=== PATIENT | female | born 1955 | race Caucasian/White ===

== ENCOUNTER 2018-05-30 11:22 | Emergency (ER) | payer MEDICARE, OTHER ==
[~2018-05-30] VITALS: Ht 167.6 cm; Wt 61.2 kg
[2018-05-30 11:38] VITALS: BP 126/66
--- NOTE | 2018-05-30 11:47 | NUR ---
Kenyetta marshall in [facility] - 05/30/18 at [email or web address] PALOMARES AT BEDSIDE
--- NOTE | 2018-05-30 12:01 | NUR ---
AFTER EKG REVIEWD BY , PT OKAY TO WAIT IN ER LOBBY FOR AVAILABLE ROOM
--- NOTE | 2018-05-30 13:40 | NUR ---
PT TAKEN TO BED 11 BY WHEELCHAIR.
[2018-05-30 13:46] LABS: BASOPHILS % (AUTO) 0.4 % (0.0-2.0); EOSINOPHILS % (AUTO) 0.1 % (0.0-4.0); HEMATOCRIT 45.2 % (36-48); HEMOGLOBIN 15.2 g/dL (12.0-16.0); LYMPHOCYTES # (AUTO) 1.4 K/uL (2.5-16.5); LYMPHOCYTES % (AUTO) 15.6 % (20.5-51.1); MEAN CORPUSCULAR HEMOGLOBIN 29 pg (27-31); MEAN CORPUSCULAR HGB CONC 34 g/dL (33-37); MEAN CORPUSCULAR VOLUME 86.8 fL (80-94); MONOCYTES # (AUTO) 0.8 K/uL (0.8-1.0); MONOCYTES % (AUTO) 9.1 % (1.7-9.3); NEUTROPHILS # (AUTO) 6.6 K/uL (1.8-7.7); NEUTROPHILS % (AUTO) 74.8 % (42.2-75.2); PLATELET COUNT (AUTO) 312 K/uL (140-450); RED CELL DISTRIBUTION WIDTH 14.1 % (11.6-13.7); WHITE BLOOD COUNT (AUTO) 8.8 K/uL (4.8-10.8)
--- NOTE | 2018-05-30 13:57 | NUR ---
DR PALOMARES AT BEDSIDE
[2018-05-30 14:00] LABS: PROTHROMBIN TIME 10.7 secs (10.8-13.4)
[2018-05-30] MEDS ORDERED: KETOROLAC 60 MG/2 ML VIAL IM ONE (14:00)
--- NOTE | 2018-05-30 15:05 | NUR ---
62 Y FEMALE BROUGHT IN BY EMS FROM PRIVATE HOME PT C/O EPISODE OF PALPITATION , DIAPHORETIC, AND N/V X TODAY, ADDS MECHANICAL FALL ONTO HER BOTTOM X 2 DAYS AGO AT HOME WITH BODYACHES. -ECCHMOSIS. PAIN 9/10 ACHING. DENIES DIZZINESS OR HEADACHE, EQUAL STRONG RECEPTION AGENT/PUSHES/PULL, NO FACIAL ASYMMETRY NOTED, FULL CLEAR SPEECH. VSS AT THIS TIME. AA0X4. HR AT 92. BED IS DOWN, LOCKED, BED RAIL X 1, ERMD NOTIFIED. HX---DENIES RX---NONE
--- NOTE | 2018-05-30 15:31 | NUR ---
PT TAKEN TO CT AT THIS TIME
[2018-05-30 16:52] LABS: APPEARANCE,URINE CLEAR (CLEAR); BILIRUBIN,URINE 2+ (NEGATIVE); BLOOD, URINE TRACE-L (NEGATIVE); COLOR,URINE DARK YELLOW (YELLOW); LEUKOCYTE ESTERASE ,URINE TRACE (NEGATIVE); NITRITE, URINE NEGATIVE (NEGATIVE); UGLUCOSE NEGATIVE (NEGATIVE)
--- NOTE | 2018-05-30 16:56 | NUR ---
VSS AT THIS TIME. PT SLEEPING IN BED
[2018-05-30 17:01] LABS: RBC,URINE 0-5 /HPF (0-5)
--- NOTE | 2018-05-30 18:00 | NUR ---
VSS AT THIS TIME. AA0X4. PT SITTING IN BED. AT BEDSIDE
[2018-05-30] MEDS ORDERED: LIDOCAINE VISCOUS 2% 20 ML UDC PO ONE (18:20)
[2018-05-30] MEDS ORDERED: PANTOPRAZOLE 40 MG TABEC PO ONE (18:20)
[2018-05-30] MEDS ORDERED: ALUMINUM HYD/MAG/SIMETHICONE 30 ML UDC PO ONE (18:20)
[2018-05-30] MEDS ORDERED: DICYCLOMINE HCL LIQUID 10 MG/5 ML UDC PO ONE (18:20)
[2018-05-30 18:58] VITALS: BP 140/77
--- NOTE | 2018-05-30 18:58 | NUR ---
Patient discharged with v/s stable. Written and verbal after care instructions given and explained. Patient alert, oriented and verbalized understanding of instructions. Ambulatory with steady gait. All questions addressed prior to discharge. ID band removed. Patient advised to follow up with PMD. Rx of PROTONIX, TRAMODOL HYDROCHLORIDE, MOTRIN given. Patient educated on indication of medication including possible reaction and side effects. Opportunity to ask questions provided and answered.
== END 2018-05-30 18:58 | disposition home or self-care (01) ==
LOC: MED 11:22
DX: S32.019A Unspecified fracture of first lumbar vertebra, initial encounter for closed fracture (principal); K29.70 Gastritis, unspecified, without bleeding; R00.2 Palpitations; N64.4 Mastodynia; W01.0XXA Fall on same level from slipping, tripping and stumbling without subsequent striking against object, initial encounter; Y93.89 Activity, other specified; Y92.89 Other specified places as the place of occurrence of the external cause; Y99.8 Other external cause status
CPT/HCPCS: 36415; 72100; 72131; 81001; 82948; 84484; 85025; 85610; 87086; 96372; 99284; J1885; 93005

== ENCOUNTER 2018-06-10 11:46 | Emergency (ER) | payer MEDICARE ==
[~2018-06-10] VITALS: Ht 167.6 cm; Wt 69.1 kg
[2018-06-10 11:54] VITALS: BP 152/80
--- NOTE | 2018-06-10 12:05 | NUR ---
C/O N/V/D SINCE THIS MORNING. PT REPORTS EATING A FISH SANDWICH FROM [employer] YESTERDAY AND THINKS THAT MIGHT BE WHY. PT REPORTS BACK PAIN FROM FALL AND BACK FRACTURE 2 WEEKS AGO. MEDHX:DENIES RX:TRAMADOL, IBUPROFEN, PROTONIX . SKIN IS PINK/WARM/DRY; AAOX4, AMBULATE ASSISTED WITH CANE. LUNGS CLEAR BL; HR EVEN AND REGULAR; PT DENIES ANY FEVER, CP, SOB, OR COUGH AT THIS TIME; PATIENT STATES PAIN OF 9/10 AT THIS TIME; VSS; PATIENT POSITIONED FOR COMFORT; HOB ELEVATED; BEDRAILS UP X2; BED DOWN. ER MD MADE AWARE OF PT STATUS.
[2018-06-10] MEDS ORDERED: ONDANSETRON 4 MG ODT PO ONE (12:20)
--- NOTE | 2018-06-10 13:00 | NUR ---
PT STATED SHE STILL FEEL NAUSEOUS AFTER TAKING MEDICATION.
--- NOTE | 2018-06-10 13:01 | NUR ---
COMFORTED PT THAT WE JUST WAIT A LITTLE BIT LONGER TIME TO WAIT FOR MEDICATION KICKING IN . PT'S FAMILY AT BEDSIDE.
[2018-06-10 13:09] LABS: APPEARANCE,URINE CLOUDY (CLEAR); BILIRUBIN,URINE 1+ (NEGATIVE); BLOOD, URINE 1+ (NEGATIVE); COLOR,URINE YELLOW (YELLOW); LEUKOCYTE ESTERASE ,URINE NEGATIVE (NEGATIVE); NITRITE, URINE NEGATIVE (NEGATIVE); UGLUCOSE NEGATIVE (NEGATIVE)
--- NOTE | 2018-06-10 13:30 | NUR ---
REPORT GIVEN TO BOOKER CHARGE NURSE.
[2018-06-10 13:38] LABS: RBC,URINE 0-5 /HPF (0-5); URINE AMORPHOUS URATE 4+ /HPF (None Seen)
[2018-06-10 13:39] LABS: WBC,URINE 0-5 /HPF (0-5)
--- NOTE | 2018-06-10 14:05 | NUR ---
RECEIVED REPORT FROM BOOKER. PT STILL FEEL NAUSEOUS . BEDSIDE MONITOR SHOWS SB [id number], ASKED PT REGARDING HER NORMAL HEART RATE. PT DOES NOT KNOW. PT STATED SHE STILL DOES NOT FEEL COMFORTABLE IN HER ABD AREA. WILL NOTIFY . AT BEDSIDE.
[2018-06-10] MEDS ORDERED: PROMETHAZINE 25 MG/ML VIAL IM ONE (14:10)
[2018-06-10] MEDS ORDERED: NACL 0.9% 1,000 ML IV ONE (15:00)
--- NOTE | 2018-06-10 15:00 | NUR ---
THREE PVC IN A ROW NOTED IN BEDSIDE MONITOR. DR AND CHARGE NURSE MADE AWARE.
[2018-06-10 15:25] LABS: BASOPHILS % (AUTO) 0.2 % (0.0-2.0); HEMATOCRIT 41.2 % (36-48); HEMOGLOBIN 13.4 g/dL (12.0-16.0); LYMPHOCYTES # (AUTO) 0.4 K/uL (2.5-16.5); LYMPHOCYTES % (AUTO) 4.1 % (20.5-51.1); MEAN CORPUSCULAR HEMOGLOBIN 29 pg (27-31); MEAN CORPUSCULAR HGB CONC 33 g/dL (33-37); MEAN CORPUSCULAR VOLUME 87.8 fL (80-94); MONOCYTES # (AUTO) 0.2 K/uL (0.8-1.0); MONOCYTES % (AUTO) 1.7 % (1.7-9.3); PLATELET COUNT (AUTO) 329 K/uL (140-450); RED CELL DISTRIBUTION WIDTH 14.2 % (11.6-13.7); WHITE BLOOD COUNT (AUTO) 9.6 K/uL (4.8-10.8)
[2018-06-10 15:48] LABS: ANION GAP 14.9 (8-16); CARBON DIOXIDE 25.3 mmol/L (21-32); CREATININE 0.8 mg/dL (0.6-1.3); POTASSIUM 3.2 mmol/L (3.5-5.1)
[2018-06-10 15:54] LABS: ALBUMIN 3.7 g/dL (3.4-5.0); TOTAL BILIRUBIN 0.3 mg/dL (0.0-1.0)
[2018-06-10 17:00] VITALS: BP 119/75
--- NOTE | 2018-06-10 17:00 | NUR ---
Patient discharged with v/s stable. Written and verbal after care instructions given and explained. Patient alert, oriented and verbalized understanding of instructions. Ambulatory with steady gait. All questions addressed prior to discharge. ID band removed. Patient advised to follow up with PMD. Rx of IBU,REGLAN given. Patient educated on indication of medication including possible reaction and side effects. Opportunity to ask questions provided and answered.
--- NOTE | 2018-06-15 12:39 | NUR ---
Late Entry. Confirmed with RN that 1oooml 0.9 NS IV bolus was completed at 1605.
== END 2018-06-10 17:00 | disposition home or self-care (01) ==
LOC: MED 11:46
DX: R19.7 Diarrhea, unspecified (principal); R11.0 Nausea
CPT/HCPCS: 36415; 74176; 80053; 81001; 85025; 87086; 93005; 96360; 96372; 99284; J2550; J7030; Q0162; 81002